=== PATIENT | male | born 1970 | race Caucasian/White ===

== ENCOUNTER 2016-09-07 21:02 | Emergency (ER) | payer BC ==
[~2016-09-07] VITALS: Ht 167.6 cm; Wt 82.5 kg
[~2016-09-07 21:02] MED LIST: LEVO-14 PO; LISI-791 PO
[2016-09-07 21:12] VITALS: BP 143/94; PULSE 90; TEMP 36.7; O2SAT 97; Ht 167.6 cm; Wt 82.5 kg
[2016-09-07] MEDS ORDERED: RABIES VACCINE (IMOVAX) HUMAN DIPL CELL 2.5 INTER.UNIT/ML SYR IM. ONE (21:45)
[2016-09-07] MEDS ORDERED: RABIES IMMUNE GLOBULIN (HUMAN) 150 INTER.UNIT/ML 2 ML VIAL IM. ONE (21:45)
[2016-09-07] MEDS ORDERED: LISI-787 PO (22:18)
[2016-09-07] MEDS ORDERED: BRIM0.2S OPL (22:18)
[2016-09-07] MEDS ORDERED: ANTIBIOTIC OPL (22:18)
[2016-09-07] MEDS ORDERED: TRAV0.00 OPL (22:18)
[2016-09-07] MEDS ORDERED: AMOX875T PO (22:30)
[2016-09-07] MEDS ORDERED: AMOXICIL/CLAVU 875MG HOME PACK PO ONE (23:15)
--- NOTE | 2016-09-07 23:31 | EMERGENCY ROOM VISIT NOTE ---
History First contact with patient: 21:18 Chief Complaint: BITE Stated Complaint: LACY BITE History of Present Illness The patient is a 46 year old male who presents to the Emergency Room for evaluation after being bitten by a lacy. The patient's and child were outside when a lacy started to attack then. The patient went outside to scare the lacy away, and the lacy ran toward him and nipped his right hand. The patient denies any other wounds to his body. Tetanus immunization is up-to-date , and the patient denies any pain. The lacy was killed by a neighbor, and testing is currently pending for rabies. The incident happened approximately 2 hours ago. It is noted that the lacy attacked a dog that was with the and child. The patient reports that he did handle the dog as well. Review of Systems 10 system review was performed and was negative except for pertinent positives and negatives as indicated in history of present illness Past Medical/Surgical History Medical Problems: (1) Benign hypertension Family History Unremarkable Social History Smoking Status: Never Smoker Alcohol Use: none Drug Use: none Marital Status: Housing Status: lives with family Occupation Status: employed Current/Historical Medications Scheduled Amoxicillin & Pot Clavulanate (Augmentin 875-125 mg), 1 TAB PO BID Brimonidine Tartrate-Timolol M (Combigan), 1 DROP OPL BID Lisinopril/Hctz (Zestoretic 20MG/12.5MG), 1 TAB PO DAILY Travoprost (Travatan Z), 1 DROPS OPL HS [Antibiotic Gtts], 1 DROP OPL QID Scheduled PRN Levocetirizine Dihydrochloride (Levocetirizine Dihydrochl), 5 MG PO DAILY PRN for Anxiety/Insomnia Allergies Coded Allergies: No Known Allergies (Unverified Allergy, NONE, 10/09/08) Physical Exam Vital Signs Date Time Temp Pulse Resp B/P (MAP) Pulse Ox O2 Delivery O2 Flow Rate FiO2 09/07/16 21:12 36.7 90 18 143/94 97 Room Air Physical Exam CONSTITUTIONAL: Healthy and well nourished. Alert and oriented X 3 with positive affect. HEENT: Normocephalic, atraumatic. Pupils equal, round and reactive. NECK: Full active range of motion without discomfort. MUSCULOSKELETAL: Examination of the right hand shows a light abrasion over the ulnar base of the fifth finger. There was no blood exposure. Patient has good flexion and extension of the finger without discomfort. INTEGUMENTARY: No rash or other significant dermatologic conditions noted. NEUROLOGIC: No focal neurologic deficits noted. Medical Decision & Procedures Medications Administered Medications (Trade) Dose Ordered Sig/Aria Route Start Time Stop Time Status Last Admin Dose Admin Rabies Immune Globulin (Imogam Rabies Inj) 1,650 interunit ONCE ONCE IM. 09/07/16 21:45 09/07/16 21:46 DC 09/07/16 22:42 1,650 INTERUNIT Rabies Vaccine Human Diploid Cell (Imovax Rabies) 2.5 interunit ONCE ONCE IM. 09/07/16 21:45 09/07/16 21:46 DC 09/07/16 22:41 2.5 INTERUNIT Amoxicillin/ Clavulanate Potassium (Augmentin 875MG Home Pack) 1 homepack UD ONCE PO 09/07/16 23:15 09/07/16 23:16 DC 09/07/16 23:13 1 HOMEPACK ED Course Patient history and physical exam were performed. Nurse's notes were reviewed. Vital signs were reviewed and normal. Given unusual activity of the Lacy, I suspect that it will test positive for rabies. The patient was empirically treated with Imovax and human rabies immune globulin 20 units per kilogram. The patient was instructed to return on days 3, 7 and 14 for subsequent Imovax injections. Medical Decision Impression Primary Impression: Animal bite Additional Impression: Need for immunization against rabies Departure Information Dispostion Home / Self-Care Prescriptions Amoxicillin & Pot Clavulanate (Augmentin 875-125 mg) 1 Tab Tab 1 TAB PO BID for 5 Days, #10 TAB Prov: Eduardo Goyal PA 09/07/16 Forms HOME CARE DOCUMENTATION FORM, IMPORTANT VISIT INFORMATION Patient Instructions My [facility] Additional Instructions Return on the following dates for your subsequent Imovax injections: Day 3 (09/10) Day 7 (09/14) Day 14 (09/21) Complete all Augmentin antibiotics as prescribed. Return to the emergency department for any signs of developing infection. Problem Qualifiers
== END 2016-09-07 23:34 | disposition home or self-care (01) ==
LOC: C.EDB 21:03 → C.EDD 23:34
DX: Z20.3 Contact with and (suspected) exposure to rabies (principal); W53.81XA Bitten by other rodent, initial encounter; I10 Essential (primary) hypertension

== ENCOUNTER 2016-09-10 11:24 | Emergency (ER) | payer BC ==
[~2016-09-10] VITALS: Ht 170.2 cm; Wt 81.6 kg
[~2016-09-10 11:24] MED LIST changes: +AMOX875T PO; +ANTIBIOTIC OPL; +BRIM0.2S OPL; +LISI-787 PO; -LISI-791 PO; +TRAV0.00 OPL
[2016-09-10 11:27] VITALS: TEMP 36.8; Ht 170.2 cm; Wt 81.6 kg
[2016-09-10] MEDS ORDERED: RABIES VACCINE (IMOVAX) HUMAN DIPL CELL 2.5 INTER.UNIT/ML SYR IM. ONE (11:30)
[2016-09-10 11:47] VITALS: BP 123/80; PULSE 67; O2SAT 96
--- NOTE | 2016-09-10 11:47 | EMERGENCY ROOM VISIT NOTE ---
ED Visit Note First contact with patient: 11:27 CHIEF COMPLAINT: Rabies prophylaxis History of Present Illness This 46 year old male who presents to the Emergency Room for second rabies vaccine. The patient was bit by a anderson prior to initiation of the rabies vaccine. He did not have any problems with her prior vaccine. He states the wound is healing well. Review of Systems 10 system review was performed and was negative except for pertinent positives and negatives as indicated in history of present illness Past Medical/Surgical History Medical Problems: (1) Benign hypertension Family History Unremarkable Social History Smoking Status: Never Smoker Alcohol Use: none Drug Use: none Marital Status: Housing Status: lives with family Occupation Status: employed PHYSICAL EXAM: Vital Signs: Were reviewed Reviewed Nurse's notes. GENERAL: 46- year-old male appears in no acute distress. EYES: PERRL, EOMI, no discharge or injection. SKIN: Healed small scratch noted on the left lateral wrist without signs of infection. NEUROLOGICAL: Alert and cooperative. Sensory and motor functions grossly intact. EMERGENCY DEPARTMENT COURSE: The patient was given Imovax DIAGNOSIS: Post exposure rabies prophylaxis DISCHARGE INSTRUCTIONS: Continue the rabies vaccine schedule as previously directed. Problem List Medical Problems: (1) Benign hypertension Status: Chronic Current/Historical Medications Scheduled Amoxicillin & Pot Clavulanate (Augmentin 875-125 mg), 1 TAB PO BID Brimonidine Tartrate-Timolol M (Combigan), 1 DROP OPL BID Lisinopril/Hctz (Zestoretic 20MG/12.5MG), 1 TAB PO DAILY Travoprost (Travatan Z), 1 DROPS OPL HS [Antibiotic Gtts], 1 DROP OPL QID Scheduled PRN Levocetirizine Dihydrochloride (Levocetirizine Dihydrochl), 5 MG PO DAILY PRN for Anxiety/Insomnia Allergies Coded Allergies: No Known Allergies (Unverified Allergy, NONE, 10/09/08) Vital Signs Date Time Temp Pulse Resp B/P (MAP) Pulse Ox O2 Delivery O2 Flow Rate FiO2 09/10/16 11:27 36.8 79 20 127/80 98 Room Air Departure Information Referrals Henrique Lau M.D. (PCP) Patient Instructions My [facility]
== END 2016-09-10 12:02 | disposition home or self-care (01) ==
LOC: C.EDB 11:24 → C.EDD 12:02
DX: Z20.3 Contact with and (suspected) exposure to rabies (principal); I10 Essential (primary) hypertension; W55.81XD Bitten by other mammals, subsequent encounter; S61.552D Open bite of left wrist, subsequent encounter

== ENCOUNTER 2016-09-14 10:34 | Emergency (ER) | payer BC ==
[~2016-09-14] VITALS: Ht 172.7 cm; Wt 73.7 kg
[~2016-09-14 10:34] MED LIST changes: -AMOX875T PO; -ANTIBIOTIC OPL
[2016-09-14 10:43] VITALS: TEMP 36.8; Ht 172.7 cm; Wt 73.7 kg
--- NOTE | 2016-09-14 10:59 | EMERGENCY ROOM VISIT NOTE ---
ED Visit Note First contact with patient: 10:50 CHIEF COMPLAINT: Rabies prophylaxis HISTORY OF PRESENT ILLNESS: This 46-year-old male patient presents to the emergency department ambulatory for their third rabies shot. The patient has not had any complications from the previous injections. They deny any other complaints. REVIEW OF SYSTEMS: A 6 system review of systems was completed with positives and pertinent negatives listed in the HPI. ALLERGIES: No known drug allergies MEDICATIONS: Unchanged from previous PMH: Unchanged from previous visit. PHYSICAL EXAM: Vital Signs: Reviewed Nurse's notes, vital signs stable. GENERAL : This is a 46-year-old male, in no acute distress, well-developed, well- nourished. HEAD: Atraumatic, without temporal or scalp tenderness. EYES: PERRLA, EOMI, no discharge or injection. SKIN: Normal. NEUROLOGICAL: Alert and cooperative. Sensory and motor functions grossly intact. EMERGENCY DEPARTMENT COURSE: I examined the patient. The patient was given Imovax 1ml IM. The patient was observed for 20 minutes with no reaction. The patient was discharged home in stable condition. DIAGNOSIS: Rabies prophylaxis DISCHARGE INSTRUCTIONS: Continue vaccination schedule as directed. Return for any complications. Problem List Medical Problems: (1) Benign hypertension Status: Chronic Current/Historical Medications Scheduled Brimonidine Tartrate-Timolol M (Combigan), 1 DROP OPL BID Lisinopril/Hctz (Zestoretic 20MG/12.5MG), 1 TAB PO DAILY Travoprost (Travatan Z), 1 DROPS OPL HS Scheduled PRN Levocetirizine Dihydrochloride (Levocetirizine Dihydrochl), 5 MG PO DAILY PRN for Anxiety/Insomnia Allergies Coded Allergies: No Known Allergies (Unverified , NONE, 09/10/16) Vital Signs Date Time Temp Pulse Resp B/P (MAP) Pulse Ox O2 Delivery O2 Flow Rate FiO2 09/14/16 11:32 63 20 124/83 96 Room Air 09/14/16 10:43 36.8 66 18 114/75 96 Room Air Medications Administered Medications (Trade) Dose Ordered Sig/Aria Route Start Time Stop Time Status Last Admin Dose Admin Rabies Vaccine Human Diploid Cell (Imovax Rabies) 2.5 interunit ONCE ONCE IM. 09/14/16 11:00 09/14/16 11:01 DC 09/14/16 11:00 2.5 INTERUNIT Departure Information Impression Primary Impression: Rabies, need for prophylactic vaccination against Dispostion Home / Self-Care Condition GOOD Referrals Henrique Lau M.D. (PCP) Patient Instructions My [facility] Additional Instructions Continue vaccination schedule as directed. Return for any complications.
[2016-09-14] MEDS ORDERED: RABIES VACCINE (IMOVAX) HUMAN DIPL CELL 2.5 INTER.UNIT/ML SYR IM. ONE (11:00)
[2016-09-14 11:32] VITALS: BP 124/83; PULSE 63; O2SAT 96
== END 2016-09-14 11:33 | disposition home or self-care (01) ==
LOC: C.EDB 10:36 → C.EDD 11:33
DX: Z20.3 Contact with and (suspected) exposure to rabies (principal); Z23 Encounter for immunization; I10 Essential (primary) hypertension; Z79.899 Other long term (current) drug therapy

== ENCOUNTER 2016-09-21 12:46 | Emergency (ER) | payer BC ==
[~2016-09-21] VITALS: Ht 170.2 cm; Wt 81.4 kg
[2016-09-21 12:49] VITALS: BP 119/78; PULSE 73; TEMP 36.7; O2SAT 95; Ht 170.2 cm; Wt 81.4 kg
[2016-09-21] MEDS ORDERED: RABIES VACCINE (IMOVAX) HUMAN DIPL CELL 2.5 INTER.UNIT/ML SYR IM. ONE (12:49)
--- NOTE | 2016-09-22 13:57 | EMERGENCY ROOM VISIT NOTE ---
ED Visit Note First contact with patient: 12:53 Chief Complaint: Rabies vaccination. History of Present Illness: Mr. Moeller is a 46-year-old white male who ambulates into the ED accompanied by female friend requesting the last of his rabies immunization vaccination from a anderson bite. He reports she's had no previous reactions to any of the immunizations and today he is feeling well. He denies fevers, chills, sweats, skin eruptions, skin color changes, headache, vomiting, decreased appetite, joint pains, extremity weakness/numbness/tingling. Review of Systems: As noted above in history of present illness. Past Medical History: Hypertension. Current Medications: Medications Dose Route/Sig Max Daily Dose Days Date Category Combigan (Brimonidine Tartrate-Timolol M) 1 Dina Dina 1 Drop OPL BID 09/07/16 Reported Travatan Z (Travoprost) 0.004 % Toro 1 Drops OPL HS 09/07/16 Reported Zestoretic 20MG/12.5MG (HCTZ/Lisinopril) Unknown Strength Tab 1 Tab PO DAILY 09/07/16 Reported Levocetirizine Dihydrochl (Levocetirizine Dihydrochloride) 5 Mg Tab 5 Mg PO DAILY PRN 12/04/12 Reported Allergies to Medications: Patient denies. Social History: Patient is currently employed; he feels safe in his home environment; he denies tobacco use. Physical Examination: Vital Signs: Date Time Temp Pulse Resp B/P (MAP) Pulse Ox O2 Delivery O2 Flow Rate FiO2 09/21/16 12:49 36.7 73 18 119/78 95 Room Air GENERAL: 46-year-old male in no acute distress, nontoxic-appearing, afebrile and hemodynamically stable. NEUROLOGICAL: Awake, alert and oriented to person, place and time. Answering questions appropriately and following commands. Normal gait. Good hand eye coordination. SKIN: Warm, dry and pink. ED Course: Patient is assessed as noted above. Patient's medications were reviewed. Patient was given 2.5 interunits of rabies vaccination IM. Patient was observed and had no reactions. Patient was educated about today's findings and instructed on his treatment plan ; he verbalized understanding and agreement with this plan. Clinical Impression: Rabies immunization. Disposition: Patient discharged home in stable condition accompanied by his ; prior to departure he was reassessed and subjectively reported he was pain and symptom-free. Plan: Patient was encouraged to follow-up with his family physician one week. Patient was encouraged return ED for any signs of adverse reaction to either his immunizations or his recent animal bite.
== END 2016-09-21 13:21 | disposition home or self-care (01) ==
LOC: C.EDB 12:47 → C.EDD 13:21
DX: Z23 Encounter for immunization (principal); Z20.3 Contact with and (suspected) exposure to rabies; I10 Essential (primary) hypertension; W55.81XD Bitten by other mammals, subsequent encounter

== ENCOUNTER → 2017-06-24 | Outpatient (CLI) | payer OTHER ==
--- NOTE | 2017-06-24 13:43 | DIAGNOSTIC IMAGING REPORT ---
CHEST 2 VIEWS ROUTINE HISTORY: Positive PPD. ENCOUNTER FOR IMMUNIZATION COMPARISON: Chest 05/15/2012. FINDINGS: The lungs are clear. Cardiac silhouette is normal in size. No pleural effusions. No pneumothorax. IMPRESSION: No acute process. Electronically signed by: Juan Diego Alcala M.D. 06/24/2017 1:42 PM Dictated Date/Time: 06/24/2017 1:41 PM
== END | disposition home or self-care (01) ==
LOC: C.RAD 13:22
PROVIDERS: ATTEND Family Medicine
DX: Z23 Encounter for immunization (principal); R76.11 Nonspecific reaction to tuberculin skin test without active tuberculosis